=== PATIENT | female | born 1985 | race Caucasian/White ===

== ENCOUNTER → 2022-08-07 12:33 | Outpatient (CLI) | payer BC, SELFPAY ==
--- NOTE | ~2022-08-07 | CT_ITS ---
EXAMINATION: CT abdomen pelvis wo con DATE: 08/07/2022 12:51 INDICATION: Bilateral kidney stones TECHNIQUE: Computed tomography (CT) of the abdomen and pelvis was performed without intravenous contr ast. Automated exposure control and iterative reconstruction technique were employed. Exam dose: 371 .29 mGy-cm total exam DLP. COMPARISON: 08/07/2022 [facility] FINDINGS: The lung bases are clear of infiltrate or consolidation or mass lesion. Normal heart size. No pericardial or pleural effusion. The liver, gallbladder, bile ducts, pancreas, pancreatic duct and spleen are unremarkable. Normal morphology of the adrenal glands. There is prominent scarring and volume loss of the lower pole left kidney, likely due to chronic pyel onephritis. There is prominent nephrocalcinosis of the left kidney. Approximately 4 x 6 mm and 7 x 8 mm lower pole left renal calculi are noted, the larger calculus havi ng attenuation of 835 Hounsfield units approximately. There 2 pinpoint nonobstructing right renal calculi. No ureteral calculus or hydroureteronephrosis is noted on either side. There is normal caliber of the abdominal aorta. No intraperitoneal or retroperitoneal or pelvic mass lesion or adenopathy or ascites is noted. Uterus measures approximately 9.7 cm vertical and 5.5 cm anteroposterior dimension. The adnexal areas and urinary bladder are unremarkable. Normal appendix. No bowel obstruction, bowel wall thickening, pneumatosis or intraperitoneal free air . Included skeletal structures are unremarkable. IMPRESSION: Scarring of left kidney, particularly lower pole Left nephrocalcinosis and nonobstructive left nephrolithiasis Minimal nonobstructive right nephrolithiasis Reviewed, dictated and finalized at [facility]. Reviewed, dictated and finalized at [facility]. AL EDUCATOR
--- NOTE | ~2022-08-07 | XR_ITS ---
EXAM: XR abdomen/kub 1V DATE: 08/07/2022 12:45 HISTORY: Bilateral kidney stones follow up . COMPARISON: CT abdomen and pelvis, same date. FINDINGS: Clear lung bases. Normal bowel gas pattern. No organomegaly. Punctate right renal calculi. Multiple left inferior pole calculi. Regional bones and soft tissues normal for age. IMPRESSION: Bilateral nephrolithiasis. Reviewed, dictated and finalized at [facility]. 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
== END ==
PROVIDERS: PCP Family Medicine; Visit Provider Nurse Practitioner Family
DX: N20.0 Calculus of kidney (principal)
CPT/HCPCS: 74018; 74176